=== PATIENT | male | born 1975 | race Caucasian/White ===

== ENCOUNTER 2019-03-12 14:13 | Inpatient (IN) | payer SELFPAY ==
[2019-03-12] MEDS ORDERED: LABETALOL INJ 5 MG/ML VIAL IV ONE (14:31)
--- NOTE | 2019-03-12 14:53 | ED.PDOC ---
History of Present Illness - General Chief Complaint: Blood Pressure Problem Stated Complaint: Hypertension and JACOBO Time Seen by Provider: 03/12/19 14:48 Source: patient, family - History of Present Illness Initial Comments: 43 yo M with hx of DM, HTN who presents for "not feeling well" since yesterday afternoon, continued to worsen and therefore presented to the ED. Pt was in recent past noncompliant with medication, has started to become compliant, and was doing well. Yesterday however noticed his BP was high, he tried to take a second dose of lisinopril however it did not improve the sx. Associated frontal, nonradiating, constant, slowly worsening JACOBO. Reports associated SOB even while talking, worse with exertion, and bilateral calf pain however no swelling. Chronic cough from the lisinopril. Mentions that two months ago he had what appeared to family as a generalized shaking seizure, EMS was called, by the time EMS arrived he was back to normal and therefore declined transport, he has not sought medical treatment since then, no episodes since then, reports he felt "cold all over" before it happened and he is feeling that way currently. Denies fever, chills, body aches, congestion, ear pain, sore throat, CP, abd pain, n/v/d, edema, recent long trips, recent surgery, hormone use, weakness, numbness, change in vision. Denies hx of OH, CAD, CVA. Allergies/Adverse Reactions: Allergies NO KNOWN ALLERGY Allergy (Verified 03/12/19 14:29) Home Medications: Ambulatory Orders Glipizide 10 mg PO DAILY 03/12/19 Lisinopril 20 mg PO DAILY 03/12/19 RX: Gabapentin 300 mg PO BID 03/12/19 Review of Systems - Review of Systems Constitutional: States: other - felling cold all over. Denies: chills, fever EENTM: Denies: eye pain, blurred vision, double vision, ear pain, nose pain, nose congestion, throat pain, throat swelling, mouth pain Respiratory: States: cough - chronic, short of breath. Denies: stridor, wheezing Cardiology: Denies: chest pain, edema, palpitations, syncope Gastrointestinal/Abdominal: Denies: abdominal pain, constipation, diarrhea, nausea, vomiting Genitourinary: Denies: frequency, hematuria Musculoskeletal: Denies: back pain, neck pain Skin: Denies: change in color, lesions, rash Neurological: States: headache, seizure - ?. Denies: numbness, paresthesia, tingling, tremors, weakness Endocrine: Denies: excessive sweating, flushing Hematologic/Lymphatic: Denies: easy bleeding, easy bruising Past Medical History (General) - Patient Medical History Hx Stroke: No Hx of COPD: No Hx Cardiac Disorders: No Hx Congestive Heart Failure: No Hx Hypertension: Yes Hx Diabetes: Yes Hx Gastroesophageal Reflux: Yes Hx Cancer: No Surgical History: other - Vaccination History Hx Tetanus, Diphtheria Vaccination: No Hx Influenza Vaccination: No - Social History Hx Tobacco Use: No Hx Alcohol Use: Yes - Former Hx Substance Use: No Hx Substance Use Treatment: No Hx Depression: No - Female History Patient is a Female of Child Bearing Age (10 -59 yrs old): No Patient : No Family Medical History - Family History Mother Living Status: Still Living Hx Family Congestive Heart Failure: Yes Physical Exam - Physical Exam General Appearance: Alert, No apparent distress, Well Developed, Well Nourished Eyes, Ears, Nose, Throat Exam: PERRL/EOMI, other - No photophobia, scleral icterus Neck: non-tender, full range of motion, supple, normal inspection Respiratory: chest non-tender, lungs clear, normal breath sounds, no respiratory distress, no accessory muscle use, other - No acc muscle use, rales, rhonci, wheezing, stridor Cardiovascular/Chest: normal peripheral pulses, regular rate, rhythm, no edema, no gallop, no JVD, no murmur Peripheral Pulses: radial,right: 2+, radial,left: 2+ Gastrointestinal/Abdominal: normal bowel sounds, non tender, soft, no organomegaly, no pulsatile mass, other - No distention, guarding, rebound Extremity: normal range of motion, non-tender, normal inspection, no pedal edema, no calf tenderness Neurologic: installations inspector II-XII nml as tested, no motor/sensory deficits, alert, normal mood/affect, oriented x 3, other - Normal gait, normal cerebellar testing Skin Exam: normal color, warm/dry, other - No rash Progress - Progress Progress: Differential Diagnosis: Dehydration, KOURTNEY, electrolyte disorder, volume overload, NSTEMI, STEMI, arrhythmia, PE, pneumonia, pleural effusion, intracranial process, hyperglycemia, DKA, hypertensive urgency, hypertensive emergency, amongst other considerations 03/12/19 15:06 HEART score of 3. 03/12/19 15:23 BP improved to 160's systolic with IV labetalol, pt reports symptomatic improvement, will give toradol 30mg IV. 03/12/19 15:40 Two SIRS criteria; HR 93, WBC 12.4. No source of infection, no symptoms supporting infection. Will not activate code sepsis. Rechecked pt, doing well. Sx improved. Discussed results and need for admission, pt agrees with plan, all questions and concerns addressed. 03/12/19 15:[address] Pardo, hospitalist, accepts for admission for DKA. Will start pt on insulin drip after 2L bolus. Pt is well appearing. Eunice Birmingham MD Emergency Medicine Physician Billing Number [id number] - Results/Orders Results/Orders: Laboratory Results - last 24 hr 03/12/19 03/12/19 03/12/19 14:57 14:57 14:57 WBC 12.4 H RBC 5.43 Hgb 15.6 Hct 45.9 MCV 84.5 MCH 28.7 MCHC 33.9 RDW 13.0 Plt Count 191 MPV 9.1 Absolute Neuts (auto) 8.70 H Absolute Lymphs (auto) 2.50 Absolute Monos (auto) 1.00 H Absolute Eos (auto) 0.10 Absolute Basos (auto) 0.10 Neutrophils % 70.0 Lymphocytes % 19.9 L Monocytes % 8.3 Eosinophils % 1.0 Basophils % 0.8 D-Dimer, Quantitative pCO2 pO2 HCO3 ABG pH ABG O2 Saturation ABG Base Excess ABG Deoxyhemoglobin Oxyhemoglobin % Carboxyhemoglobin % Methemoglobin % Sat Calc Total Hemoglobin Sodium 135 Potassium 4.0 Chloride 99 L Carbon Dioxide 18 L Anion Gap 22.0 H BUN 24 H Creatinine 0.97 BUN/Creatinine Ratio 24.7 H Random Glucose 314 H Serum Osmolality 286.1 Calcium 9.1 Total Bilirubin 0.4 AST 23 ALT 23 Alkaline Phosphatase 64 Troponin I < 0.02 B-Natriuretic Peptide Serum Total Protein 7.7 Albumin 4.0 Globulin 3.7 H Albumin/Globulin Ratio 1.1 03/12/19 03/12/19 03/12/19 14:57 14:57 15:52 WBC RBC Hgb Hct MCV MCH MCHC RDW Plt Count MPV Absolute Neuts (auto) Absolute Lymphs (auto) Absolute Monos (auto) Absolute Eos (auto) Absolute Basos (auto) Neutrophils % Lymphocytes % Monocytes % Eosinophils % Basophils % D-Dimer, Quantitative 0.24 pCO2 37 pO2 84 HCO3 21.6 ABG pH 7.390 ABG O2 Saturation 97.0 ABG Base Excess -2.4 ABG Deoxyhemoglobin 3.0 Oxyhemoglobin % 95.2 Carboxyhemoglobin % 0.2 L Methemoglobin % Sat 1.6 H Calc Total Hemoglobin 14.1 Sodium Potassium Chloride Carbon Dioxide Anion Gap BUN Creatinine BUN/Creatinine Ratio Random Glucose Serum Osmolality Calcium Total Bilirubin AST ALT Alkaline Phosphatase Troponin I B-Natriuretic Peptide 7.5 Serum Total Protein Albumin Globulin Albumin/Globulin Ratio CT HEAD: EXAM DESCRIPTION: Head CLINICAL HISTORY: headache COMPARISON: None available TECHNIQUE: Contiguous axial images through the head were obtained without intravenous contrast administration. Sagittal and coronal reconstructions were reviewed. This exam was performed according to our departmental dose- optimization program, which includes automated exposure control, adjustment of the mA and/or kV according to patient size and/or use of iterative reconstr uction technique. FINDINGS: No evidence of acute major vascular territorial infarct or intraparenchymal hemorrhage. No intra-axial or extra-axial fluid collections are identified. The ventricles and cisterns appear normal in caliber. The sella and suprasellar regions appear normal. The structures of the posterior fossa are intact. The globes are intact bilaterally. The visualized paranasal sinuses and mastoid air cells are well-aerated. Review of the bones demonstrates no gross instability. IMPRESSION: No CT evidence of acute intracranial process. Electronically signed by: Jimenez Guadalupe MD 03/12/2019 3:22 PM CDT CXR: EXAM DESCRIPTION: Chest,2 Views CLINICAL HISTORY: 43 years Male, elevated BP, cardiac workup COMPARISON: None available. TECHNIQUE: PA and lateral radiographs of the chest were obtained. FINDINGS: Trachea is midline.The cardiomediastinal silhouette is normal in size. The pulmonary vasculature is within normal limits.The lungs are clear with no acute consolidation.No evidence of pleural effusions.No evidence of pneumothorax. IMPRESSION: No acute cardiopulmonary process. Electronically signed by: Jimenez Guadalupe MD 03/12/2019 3:16 PM CDT - EKG/XRAY/CT EKG: Sinus, RBBB Comments: Rate 97, LAE, T wave inversion III. [place] ST. No STEMI. Departure - Departure Clinical Impression: DKA (diabetic ketoacidoses) Disposition: Admit Patient Condition: Fair Home Medications: Ambulatory Orders Glipizide 10 mg PO DAILY 03/12/19 Lisinopril 20 mg PO DAILY 03/12/19 RX: Gabapentin 300 mg PO BID 03/12/19
--- NOTE | 2019-03-12 15:18 | RAD ---
EXAM DESCRIPTION: Chest,2 Views CLINICAL HISTORY: 43 years Male, elevated BP, cardiac workup COMPARISON: None available. TECHNIQUE: PA and lateral radiographs of the chest were obtained. FINDINGS: Trachea is midline.The cardiomediastinal silhouette is normal in size. The pulmonary vasculature is within normal limits.The lungs are clear with no acute consolidation.No evidence of pleural effusions.No evidence of pneumothorax. IMPRESSION: No acute cardiopulmonary process. Electronically signed by: Jimenez Guadalupe MD 03/12/2019 3:16 PM CDT
[2019-03-12] MEDS ORDERED: KETOROLAC TROMETHAMINE INJ 30 MG/ML VIAL IV ONE (15:23)
--- NOTE | 2019-03-12 15:23 | CT ---
EXAM DESCRIPTION: Head CLINICAL HISTORY: headache COMPARISON: None available TECHNIQUE: Contiguous axial images through the head were obtained without intravenous contrast administration. Sagittal and coronal reconstructions were reviewed. This exam was performed according to our departmental dose-optimization program, which includes automated exposure control, adjustment of the mA and/or kV according to patient size and/or use of iterative reconstruction technique. FINDINGS: No evidence of acute major vascular territorial infarct or intraparenchymal hemorrhage. No intra-axial or extra-axial fluid collections are identified. The ventricles and cisterns appear normal in caliber. The sella and suprasellar regions appear normal. The structures of the posterior fossa are intact. The globes are intact bilaterally. The visualized paranasal sinuses and mastoid air cells are well-aerated. Review of the bones demonstrates no gross instability. IMPRESSION: No CT evidence of acute intracranial process. Electronically signed by: Jimenez Guadalupe MD 03/12/2019 3:22 PM CDT
[2019-03-12] MEDS ORDERED: SODIUM CHLORIDE 0.9% 1000ML 1,000 ML IVS ONE ×2 (15:39→16:02)
[2019-03-12] MEDS ORDERED: INSULIN, REG.(HUMAN) 250 UNITS in SODIUM CHL 0.9% 250ML (AVIVA) 247.5 ML IVPB SCH ×4 (16:00→17:00)
--- NOTE | 2019-03-12 16:05 | HP ---
CHIEF COMPLAINT: Elevated blood pressure and headache. HISTORY OF PRESENT ILLNESS: The patient began having an increasing headache over the last several days, which usually happens when his blood pressure is elevated. He states he noted a couple of readings into the 170s/100s. He said he had a little bit of calf pain and shortness of breath over the last couple of days as well. He has a history of diabetes, currently taking Glipizide, Gabapentin and Lisinopril. He states he has been noncompliant in the past many months, but over the last 3 to 4 weeks he has begun to cut his sugar intake down, while continuing with his diabetic medications. The one change he endorses is trying to take less and less of his Gabapentin. REVIEW OF SYSTEMS: The patient denies any fever or chills, no congestion or upper respiratory symptoms, no abdominal pain, slight constipation, no nausea or vomiting, no edema. PAST MEDICAL HISTORY: 1. Diabetes. 2. Hypertension. 3. Diabetic neuropathy. PAST SURGICAL HISTORY: None. CURRENT MEDICATIONS: 1. Glipizide 10 mg p.o. daily. 2. Lisinopril 20 mg p.o. daily. 3. Gabapentin 300 mg p.o. b.i.d. ALLERGIES: NO KNOWN DRUG ALLERGIES. FAMILY HISTORY: Mother with congestive heart failure. OBJECTIVE: VITAL SIGNS: 98.4 degrees Fahrenheit, pulse 82, blood pressure 143/88, respiratory rate 16, O2 saturation 96% on room air. PHYSICAL EXAMINATION: GENERAL: The patient is alert, non-agitated, not anxious and acting appropriately. RESPIRATORY: Lungs are clear to auscultation, no wheezes. CARDIAC: Normal rate and rhythm, no murmurs, normal pedal pulses and radial pulses, no edema. GASTROINTESTINAL: No abdominal tenderness and no abdominal masses appreciated. NEUROLOGIC: Alert and oriented times three, cranial nerve I-XII grossly intact. MUSCULOSKELETAL: Strength 5/5 in all extremities, sensation normal throughout. LABORATORY: Hematology: White blood cells 12.4, hemoglobin and hematocrit is 15.6 and 45.9, platelet count 191. D-dimer 0.24. Sodium 135, potassium 4.0, chloride 99, carbon dioxide 18, anion gap 22.0, BUN/creatinine is 24/0.97, serum osmolality 286. Random glucose 314, calcium 9.1, total bilirubin 0.4. AST/ALT is 23/23. Troponin is negative. BNP negative at 7.5. Urinalysis within normal limits except for glucose of 500 and ketones of 15. ABG shows pH of 7.39. IMAGING: Head CT: No acute intracranial process. Chest x-ray: No acute cardiopulmonary process is noted. ASSESSMENT: 1. Acute hyperglycemia. 2. Acute on chronic hypertensive urgency. 3. Chronic type 2 diabetes. 4. Diabetic neuropathy. PLAN: The patient meets criteria for acute hyperglycemia at this time, serum osmolality was normal so no HHS, and he was not acidotic therefore not in diabetic ketoacidosis. He received 2 liters of normal saline in the E. R., will initiate insulin drip at 0.1 units per kg per hour. Once blood glucose is below 250, we can initiate subcutaneous insulin administration. He will have finger glucose checks every hour, with BMP every 4 hours. Potassium was normal prior to saline and insulin administration, therefore can add 20 mg of potassium to normal saline at 140 mL per hour after boluses are finished. I am lab adding magnesium and phosphorus levels to check baseline. We will follow anion gap throughout the night. NPO currently, I assume we will be able to feed him breakfast and he will transition to low dose subcutaneous insulin by tomorrow. I presume he will be here for at least 2 midnights, and we can initiate his home diabetic regimen prior to discharge. The patient endorses he would like to see me as a primary care physician on an outpatient basis for hospital followup and intermediate care. He is currently full code, he and his agree to the plan. Discussed with nurses on the floor. #[id number] MTDD
[2019-03-12] MEDS ORDERED: ACETAMINOPHEN 325 MG TAB PO PRN (16:47)
[2019-03-12] MEDS ORDERED: SODIUM CHLORIDE 0.9% (FLUSH) 10 ML SYG IV PRN (16:47)
[2019-03-12] MEDS ORDERED: IV SET AND CAP CHANGE INJ INJ SCH (17:00)
[2019-03-12] MEDS ORDERED: INSULIN LISPRO 100 UNITS/ML PEN SUBCU ONE (17:33)
[2019-03-12] MEDS: INSULIN LISPRO 100 UNITS/ML PEN SUBCU SCH ×8 (17:43→23:26)
[2019-03-12] MEDS: KCL 20 MEQ/NS 1,000 ML IVS PRN (19:17)
[2019-03-12] MEDS: LISINOPRIL 10 MG TAB PO SCH (20:18)
[2019-03-13] MEDS: INSULIN LISPRO 100 UNITS/ML PEN SUBCU SCH ×2 (07:09→11:49)
[2019-03-13] MEDS: LISINOPRIL 10 MG TAB PO SCH (08:53)
[2019-03-13] MEDS: KCL 20 MEQ/NS 1,000 ML IVS PRN (08:59)
[2019-03-13] MEDS ORDERED: LISINOPRIL 10 MG TAB PO SCH (09:00)
[2019-03-13] MEDS: metFORMIN XR 500 MG TAB.ER.24 PO SCH ×2 (12:11→12:38)
[2019-03-13 12:41] VITALS: BP 140/72; TEMP 98.7; O2SAT 98
[2019-03-13] MEDS ORDERED: INFLUENZA VIRUS VACC (ADULT) 0.5 ML SYG IM ONE (12:42)
[2019-03-13] MEDS ORDERED: SODIUM CHLORIDE 0.9% (FLUSH) 10 ML SYG IV SCH (21:00)
--- NOTE | 2019-03-14 14:04 | DS ---
SUPERVISING PHYSICIAN: Chase Pardo MD DISCHARGE DIAGNOSES: 1. Acute hyperglycemia. 2. Acute on chronic hypertensive urgency. 3. Chronic type 2 diabetes. 4. Diabetic neuropathy. HISTORY OF PRESENT ILLNESS: This is a 43 year-old male who had been having an increasing headache over the last several days. This usually happens when his blood pressure is elevated. He had several readings in the 170s/100s. There was also some chest pain as well as some shortness of breath. He has a history of diabetes, currently taking Glipizide, Gabapentin and Lisinopril, although he has been out of his medications for some time. He has also been noncompliant. In the past, he was living in [place] but has recently moved to [place]. He did say that he had been cutting his sugar intake down because he has been out of his medications for a few days. The patient was admitted to the hospital for treatment of hypoglycemia as well as his hypertensive urgency. HOSPITAL COURSE: The patient's medications were restarted. His blood pressures came down to the 120s/80s to the 150s over 70s. He was placed on sliding scale insulin with a.c. and h.s. blood sugar checks. His glucose readings were around 136 to 262 after starting the Humalog insulin. He has had a difficult time with metformin in the past and does not want to take it due to GI symptoms. He has also been fairly noncompliant with the glipizide because it makes him feel poorly as well. His vital signs have been stable, his blood work has been stable and he will be discharged home in stable condition with close followup with Dr. Pardo on Friday. LABORATORY: WBCs were elevated at 12.4. The remainder of his hemoglobin and hematocrit was unremarkable. D-dimer was negative. His arterial blood gases was also urinalysis. Blood sugars ran between a high of 314 in the Emergency Room and was 136 to 262 after admission to the Floor. His electrolytes showed initially a low potassium as low as 3.4 and is now 3.9. His other electrolytes remained within normal limits. Hemoglobin A1C is 10.2. BUN 21, creatinine 0.75. Urinalysis is unremarkable. Serum ketones were negative. Head CT showed no CT evidence of an acute intracranial process. Chest x-ray showed no acute cardiopulmonary processes. DISCHARGE PLAN: The patient will be discharged home in stable condition. He is to continue a diabetic diet and increase his activity as tolerated. He does have a followup appointment with Dr. Pardo on 03/15/19 at 11:00 A.M. He does not want to take metformin at this time due to GI distress. He also says that glipizide makes him feel poorly and has asked once a week injection. I refilled his Lisinopril and his Gabapentin. Since he has close followup, I will go ahead and take his glipizide that he has at home and his medications can be reviewed at his followup appointments. He will have [employer] insurance as of April 20. He is to return to the hospital or followup with Dr. Pardo for any problems or complications. DISCHARGE MEDICATIONS: 1. Glipizide. 2. Lisinopril. 3. Gabapentin. #[id number] MTDD
== END 2019-03-13 13:33 | disposition home or self-care (01) | DRG 639 ==
LOC: ER 14:13 → OBSVTOIN 16:01 → MS 16:01
PROVIDERS: ADMIT Family Medicine; ATTEND Nurse Practitioner Acute Care
DX: E11.65 Type 2 diabetes mellitus with hyperglycemia (principal); I16.0 Hypertensive urgency; I10 Essential (primary) hypertension; E11.40 Type 2 diabetes mellitus with diabetic neuropathy, unspecified; T38.3X6A Underdosing of insulin and oral hypoglycemic [antidiabetic] drugs, initial encounter; T42.6X6A Underdosing of other antiepileptic and sedative-hypnotic drugs, initial encounter; T46.4X6A Underdosing of angiotensin-converting-enzyme inhibitors, initial encounter; Z91.128 Patient's intentional underdosing of medication regimen for other reason; Y92.009 Unspecified place in unspecified non-institutional (private) residence as the place of occurrence of the external cause; K21.9 Gastro-esophageal reflux disease without esophagitis; E87.6 Hypokalemia; Z79.84 Long term (current) use of oral hypoglycemic drugs; Z79.899 Other long term (current) drug therapy

== ENCOUNTER 2019-07-27 20:08 | Emergency (ER) | payer BC ==
--- NOTE | 2019-07-27 20:36 | RAD ---
EXAM:Chest,2 Views CLINICAL INDICATION: Shortness of breath COMPARISON: 03/12/2019 FINDINGS:Two views of the chest were obtained. The heart size is normal. The pulmonary vascularity is unremarkable. The lungs are clear. There is no consolidation, infiltrate, pleural effusion, or pneumothorax. IMPRESSION: No evidence of active pulmonary disease. Electronically signed by: Rah Bergeron MD 07/27/2019 8:35 PM CDT
--- NOTE | 2019-07-27 20:50 | ED.PDOC ---
History of Present Illness - General Chief Complaint: Respiratory Problem Stated Complaint: Dry cough, short of breath Time Seen by Provider: 07/27/19 20:37 Source: patient Exam Limitations: no limitations - History of Present Illness Comments: STARTED 3AM LAST NOC ([id number] HRS AGO) = SOB, CHEST CONGESTION, DRY COUGH. SAW DR YESTERDAY AND FELT FINE THEN. NO MED CHANGES SINCE DR VISIT. Timing/Duration: yesterday Cough Quality/Degree: dry cough Possible Cause: no prior episodes Improving Factors: nothing Worsening Factors: nothing Associated Symptoms: cough Respiratory Risk Factors: no cause identified Allergies/Adverse Reactions: Allergies NO KNOWN ALLERGY Allergy (Verified 03/12/19 18:07) Home Medications: Ambulatory Orders Lisinopril 20 mg PO DAILY #30 tab 03/13/19 Benzonatate Perles [Tessalon Perles] 100 mg PO TID PRN #30 cap 07/27/19 Chlorthalidone 50 mg PO 07/27/19 Gabapentin 600 mg PO TID 07/27/19 Metformin HCl [Fortamet] 1,000 mg PO BID 07/27/19 Metoprolol Succinate [Metoprolol Succinate ER] 25 mg PO DAILY 07/27/19 Semaglutide [Ozempic] 1 dose 07/27/19 Review of Systems - Review of Systems Constitutional: Denies: chills, fever EENTM: Denies: ear pain, nose congestion Respiratory: States: cough, short of breath Cardiology: Denies: chest pain, palpitations Gastrointestinal/Abdominal: Denies: abdominal pain, nausea Genitourinary: States: no symptoms reported Musculoskeletal: States: no symptoms reported Skin: States: no symptoms reported Neurological: States: no symptoms reported. Denies: headache Endocrine: States: no symptoms reported Hematologic/Lymphatic: States: no symptoms reported All other Systems: Reviewed and Negative Past Medical History (General) - Patient Medical History Hx Seizures: No Hx Stroke: No Hx of COPD: No Hx Cardiac Disorders: No Hx Congestive Heart Failure: No Hx Pacemaker: No Hx Hypertension: Yes Hx Diabetes: Yes Hx Gastroesophageal Reflux: Yes Hx Cancer: No Hx MRSA: No Surgical History: no surgical history - Vaccination History Hx Tetanus, Diphtheria Vaccination: No Hx Influenza Vaccination: No - Social History Hx Tobacco Use: No Hx Alcohol Use: Yes - Former Hx Substance Use: No Hx Substance Use Treatment: No Hx Depression: No Hx Physical Abuse: No Hx Emotional Abuse: No - Female History Patient : No - Triage Comment ED Triage Comment: Saw PCP yesterday for same symptoms and had mediation changes. Family Medical History - Family History Mother Living Status: Still Living Hx Family Congestive Heart Failure: Yes Physical Exam - Physical Exam General Appearance: Alert, No apparent distress, Obese Eye Exam: bilateral normal ENT Exam: normal ENT inspection, hearing grossly normal, TMs normal, pharynx normal Neck: non-tender, full range of motion, supple Respiratory: lungs clear, normal breath sounds, no respiratory distress Cardiovascular/Chest: normal peripheral pulses, no JVD, no murmur Gastrointestinal/Abdominal: non tender, soft Extremity: normal range of motion, normal inspection, no pedal edema Neurologic: alert, normal mood/affect Skin Exam: normal color, warm/dry Lymphatic: no adenopathy Progress - Results/Orders Results/Orders: 23:30 PT STATES FEELING BETTER - SOB GONE. COUGH BETTER WITH TESSALON. VIRAL URI - TINCTURE OF TIME. TESSALON FOR COUGH RX'D. HTN IMPROVED WITH CLONIDINE. FROM 160/104 TO 147/98. PT STATES IT IS CONTROLLED WHEN NOT ILL AND HE WILL KEEP AN EYE ON IT. EKG - RBBB W/ PROLONGED QT INTERVAL. CBC - ELEV WBC AND NEUTS. CMP - ELEV BUN AND GLUCOSE. CXR, BNP, CARD ENZ NEG. Departure - Departure Clinical Impression: Viral URI with cough, Neutrophilic leukocytosis, Elevated BUN Dyspnea Qualifiers: Dyspnea type: shortness of breath Qualified Code(s): R06.02 - Shortness of breath; R06.00 - Dyspnea, unspecified; R06.01 - Orthopnea Diabetes mellitus Qualifiers: Diabetes mellitus type: type 2 Diabetes mellitus termite inspector insulin use: without assisted use Diabetes mellitus complication status: without complication Qualified Code(s): E11.9 - Type 2 diabetes mellitus without complications Hypertension Qualifiers: Hypertension type: unspecified Qualified Code(s): I10 - Essential (primary) hypertension Disposition: Discharge to Home or Self Care Condition: Good Departure Forms: ED Discharge - Pt. Copy, Patient Portal Self Enrollment Instructions: Viral Upper Respiratory Infection, Adult (DC) Diet: resume usual diet Activity: increase activity as tolerated Referrals: Chase Pardo MD [Primary Care Provider] - 1-2 Weeks Prescriptions: Benzonatate Perles [Tessalon Perles] 100 mg PO TID PRN #30 cap PRN Reason: Cough Home Medications: Ambulatory Orders Lisinopril 20 mg PO DAILY #30 tab 03/13/19 Benzonatate Perles [Tessalon Perles] 100 mg PO TID PRN #30 cap 07/27/19 Chlorthalidone 50 mg PO 07/27/19 Gabapentin 600 mg PO TID 07/27/19 Metformin HCl [Fortamet] 1,000 mg PO BID 07/27/19 Metoprolol Succinate [Metoprolol Succinate ER] 25 mg PO DAILY 07/27/19 Semaglutide [Ozempic] 1 dose 07/27/19 Additional Instructions: Please follow up with your regular doctor regarding your high blood pressure and diabetes.
[2019-07-27] MEDS ORDERED: BENZONATATE PERLES 100 MG CAP PO ONE (20:52)
[2019-07-27] MEDS ORDERED: cloNIDine HCL 0.1 MG TAB PO ONE (20:54)
[2019-07-27 23:31] VITALS: O2SAT 95
[2019-07-28 00:08] VITALS: BP 133/77; TEMP 98.6
== END 2019-07-28 00:06 | disposition home or self-care (01) ==
LOC: ER 20:08
DX: J06.9 Acute upper respiratory infection, unspecified (principal); D72.828 Other elevated white blood cell count; R79.89 Other specified abnormal findings of blood chemistry; E11.9 Type 2 diabetes mellitus without complications; I10 Essential (primary) hypertension; I45.10 Unspecified right bundle-branch block; I45.81 Long QT syndrome; K21.9 Gastro-esophageal reflux disease without esophagitis; Z79.84 Long term (current) use of oral hypoglycemic drugs; Z79.899 Other long term (current) drug therapy

== ENCOUNTER 2020-03-08 19:52 | Emergency (ER) | payer SELFPAY ==
--- NOTE | 2020-03-08 19:57 | ED.PDOC ---
History of Present Illness - General Time Seen by Provider: 03/08/20 19:54 Source: patient, RN notes reviewed, Vital Signs reviewed, old records Exam Limitations: no limitations - History of Present Illness Initial Comments: 44 yo male with hx of DKA comes in with the c/c of elevated blood sugar. Checked it at home and it was reading over 400. states he was out of town and has not checked his sugar for several days as he has been out of town. Denies any changes or missed medication, no n/v/d. no dysuria, cough, shortness of breath or fever. Has bilateral throbbing headache. has leg cramps bilaterally. Otherwise feels well. Patient states hes on a total of 80 mg of lisinopril a day. Also should be on ozempic, but couldn't afford it these past two months. Allergies/Adverse Reactions: Allergies NO KNOWN ALLERGY Allergy (Verified 03/12/19 18:07) Home Medications: Ambulatory Orders Lisinopril 20 mg PO DAILY #30 tab 03/13/19 Metformin HCl [Fortamet] 1,000 mg PO BID 07/27/19 Hydrochlorothiazide 12.5 mg PO DAILY #14 cap 03/08/20 SITagliptin [Januvia] 50 mg PO DAILY #14 tab 03/08/20 Review of Systems - Review of Systems Constitutional: Denies: chills, fever, malaise EENTM: Denies: blurred vision, double vision Respiratory: Denies: cough, short of breath Cardiology: Denies: chest pain, palpitations Gastrointestinal/Abdominal: Denies: abdominal pain, diarrhea, nausea, vomiting Genitourinary: Denies: dysuria, frequency, hematuria Musculoskeletal: Denies: joint pain, joint swelling Skin: Denies: change in hair/nails, dryness Neurological: States: headache. Denies: numbness, paresthesia, pre-existing deficit, tingling, tremors, weakness Endocrine: Denies: increased urine, unexplained weight gain, unexplained weight loss Hematologic/Lymphatic: Denies: blood clots, easy bleeding, easy bruising Past Medical History (General) - Patient Medical History Hx Seizures: No Hx Stroke: No Hx of COPD: No Hx Cardiac Disorders: No Hx Congestive Heart Failure: No Hx Pacemaker: No Hx Hypertension: Yes Hx Diabetes: Yes Hx Gastroesophageal Reflux: Yes Hx Cancer: No Hx MRSA: No - Vaccination History Hx Tetanus, Diphtheria Vaccination: No Hx Influenza Vaccination: No - Social History Hx Tobacco Use: No Hx Alcohol Use: Yes - Former Hx Substance Use: No Hx Substance Use Treatment: No Hx Depression: No Hx Physical Abuse: No Hx Emotional Abuse: No - Female History Patient : No Family Medical History - Family History Mother Living Status: Still Living Hx Family Congestive Heart Failure: Yes Physical Exam - Physical Exam General Appearance: Alert, Comfortable, No apparent distress, Well Developed, Well Groomed, Well Hydrated, Well Nourished Eye Exam: bilateral normal Ears, Nose, Throat: hearing grossly normal, normal ENT inspection, normal pharynx Neck: non-tender, full range of motion, supple, normal inspection, carotid bruit Respiratory: chest non-tender, lungs clear, normal breath sounds, no respiratory distress, no accessory muscle use Cardiovascular/Chest: normal peripheral pulses, regular rate, rhythm, no edema, no gallop, no JVD, no murmur Peripheral Pulses: radial,right: 2+, radial,left: 2+ Gastrointestinal/Abdominal: normal bowel sounds, non tender, soft, no organomegaly, no pulsatile mass Rectal Exam: deferred Back Exam: normal inspection, no CVA tenderness, no vertebral tenderness Extremity: normal range of motion, non-tender, normal inspection, no pedal edema, no calf tenderness, normal capillary refill Neurologic: environmental health inspector II-XII nml as tested, no motor/sensory deficits, alert, normal mood/affect, oriented x 3 Skin Exam: normal color, warm/dry Progress - Progress Progress: partial ddx: DKA, HHH, PE, hyperglycemia, uti. 03/08/20 22:21 patient at bedside laughing with , watching videos on phone. no evidence of stress. WIll give 10 units subQ insulin, 2 L NS bolus, and recheck sugar. headache resolved with IVF and 15 mg of IV toradol. Patient given 25 mg hydrochlorothiazide here. Repeat glucsoe 307. Will give 15 units of long acting insulin. Patient most likely needs to be on basal insulin. Laboratory Results WBC 9.1 K/mm3 (4.8-10.8) 03/08/20 20:19 RBC 5.35 M/mm3 (4.70-6.10) 03/08/20 20:19 Hgb 15.4 gm/dL (14.0-18.0) 03/08/20 20:19 Hct 45.4 % (42.0-52.0) 03/08/20 20:19 MCV 84.7 fl (80.0-94.0) 03/08/20 20:19 MCH 28.8 pg (27.0-31.0) 03/08/20 20:19 MCHC 34.1 g/dL (33.0-37.0) 03/08/20 20:19 RDW 13.0 % (11.5-14.5) 03/08/20 20:19 Plt Count 181 K/mm3 (130-400) 03/08/20 20:19 MPV 8.8 fl (7.40-10.4) 03/08/20 20:19 Absolute Neuts (auto) 6.40 K/uL (1.8-6.8) 03/08/20 20:19 Absolute Lymphs (auto) 1.80 K/uL (1.0-3.4) 03/08/20 20:19 Absolute Monos (auto) 0.70 K/uL (0.2-0.8) 03/08/20 20:19 Absolute Eos (auto) 0.10 K/uL (0.0-0.4) 03/08/20 20:19 Absolute Basos (auto) 0.10 K/uL (0.0-0.1) 03/08/20 20:19 Neutrophils % 70.3 % (42.0-78.0) 03/08/20 20:19 Lymphocytes % 19.6 % (20.0-50.0) L 03/08/20 20:19 Monocytes % 8.1 % (2.0-9.0) 03/08/20 20:19 Eosinophils % 1.2 % (1.0-5.0) 03/08/20 20: Basophils % 0.8 % (0.0-2.0) 03/08/20 20:19 D-Dimer, Quantitative < 131.0 ng/ml (131-400) L 03/08/20 20:19 Sodium 132 mmol/L (135-145) L 03/08/20 20:19 Potassium 4.5 mmol/L (3.6-5.0) 03/08/20 20:19 Chloride 94 mmol/L (101-111) L 03/08/20 20:19 Carbon Dioxide 26 mmol/L (21-31) 03/08/20 20:19 Anion Gap 16.5 (12-18) 03/08/20 20:19 BUN 19 mg/dL (7-18) H 03/08/20 20:19 Creatinine 1.04 mg/dL (0.6-1.3) 03/08/20 20:19 BUN/Creatinine Ratio 18.3 (10-20) 03/08/20 20:19 POC Glucose 307 mg/dL (70-105) H 03/08/20 22:32 Random Glucose 461 mg/dL (70-105) H* 03/08/20 20:19 Serum Osmolality 286.8 mOsm/L (275-295) 03/08/20 20:19 Calcium 9.2 mg/dL (8.4-10.2) 03/08/20 20:19 Phosphorus 3.5 mg/dL (2.5-4.6) 03/08/20 20:19 Magnesium 2.0 mg/dL (1.8-2.5) 03/08/20 20:19 Total Bilirubin 0.8 mg/dL (0.2-1.0) 03/08/20 20:19 AST 25 IU/L (10-42) 03/08/20 20:19 ALT 22 IU/L (10-60) 03/08/20 20:19 Alkaline Phosphatase 80 IU/L (42-121) 03/08/20 20:19 Serum Total Protein 7.6 gm/dL (6.4-8.2) 03/08/20 20:19 Albumin 4.0 g/dl (3.2-5.5) 03/08/20 20:19 Globulin 3.6 gm/dL (2.3-3.5) H 03/08/20 20:19 Albumin/Globulin Ratio 1.1 (1.1-1.9) 03/08/20 20:19 Urine Color Yellow (Yellow) 03/08/20 20:20 Urine Appearance Clear (Clear) 03/08/20 20:20 Urine pH 5.5 (4.5-7.8) 03/08/20 20:20 Ur Specific [place] 1.010 (1.005-1.030) 03/08/20 20:20 Urine Protein Negative mg/dL 03/08/20 20:20 Urine Glucose (UA) >=1000 mg/dL (Negative) H 03/08/20 20:20 Urine Ketones 15 mg/dL (NEGATIVE) H 03/08/20 20:20 Urine Blood Trace-lysed (Negative) H 03/08/20 20:20 Urine Nitrite Negative 03/08/20 20:20 Urine Bilirubin Negative (NEGATIVE) 03/08/20 20:20 Urine Urobilinogen 0.2 mg/dL (0.2-1.0) 03/08/20 20:20 Ur Leukocyte Esterase Negative (Negative) 03/08/20 20:20 Urine RBC 0-1 /hpf 03/08/20 20:20 Urine WBC 0 /hpf 03/08/20 20:20 Ur Epithelial Cells 1-3 /hpf 03/08/20 20:20 Urine Bacteria 0 03/08/20 20:20 Serum Ketones Negative 03/08/20 20:19 03/08/20 23:04 - Results/Orders Results/Orders: The data reviewed when caring for this patient included: nurse notes, prior records, etc. The history and assessments from nurses notes were reviewed and considered, and the patient's home medication list was also reviewed and considered. My assessment and the results of testing completed here in the ED were discussed with the patient/family. All questions were answered, and they express understanding of my assessment and the plan. They have been instructed to return if their symptoms worsen, and have been asked to follow up with their primary care physician to recheck today's presenting complaint. Strict return precautions given. I have reviewed medication, benefits, alternatives and side effects. Patient decided to proceed with medication. Mireya Li DO #[id number] Departure - Departure Clinical Impression: Hypertension Qualifiers: Hypertension type: essential hypertension Qualified Code(s): I10 - Essential (primary) hypertension Diabetes mellitus Qualifiers: Diabetes mellitus type: type 2 Diabetes mellitus intermediate card tender insulin use: without intermediate card tender use Diabetes mellitus complication status: with neurologic complica tions Diabetes mellitus complication detail: with polyneuropathy Qualified Code(s): E11.42 - Type 2 diabetes mellitus with diabetic polyneuropathy Diabetic neuropathy Qualifiers: Diabetes mellitus type: type 2 Diabetes mellitus complication detail: diabetic polyneuropathy Qualified Code(s): E11.42 - Type 2 diabetes mellitus with diabetic polyneuropathy Time of Disposition: 22:20 Disposition: Discharge to Home or Self Care Departure Forms: ED Discharge - Pt. Copy, Patient Portal Self Enrollment Instructions: DASH Diet, Hyperglycemia, Adult (DC), How to Prevent High Blood Sugar Emergencies in Diabetes Referrals: Chase Pardo MD [Primary Care Provider] - 1-2 Days Prescriptions: Hydrochlorothiazide 12.5 mg PO DAILY #14 cap SITagliptin [Januvia] 50 mg PO DAILY #14 tab Home Medications: Ambulatory Orders Lisinopril 20 mg PO DAILY #30 tab 03/13/19 Metformin HCl [Fortamet] 1,000 mg PO BID 07/27/19 Hydrochlorothiazide 12.5 mg PO DAILY #14 cap 03/08/20 SITagliptin [Januvia] 50 mg PO DAILY #14 tab 03/08/20
[2020-03-08] MEDS ORDERED: SODIUM CHLORIDE 0.9% 1000ML 1,000 ML IVS PRN ×2 (20:02→21:24)
[2020-03-08 20:11] VITALS: TEMP 98
[2020-03-08] MEDS ORDERED: INSULIN, REG.(HUMAN) 100 U/ML VIAL SUBCU ONE (20:38)
[2020-03-08] MEDS ORDERED: KETOROLAC TROMETHAMINE INJ 30 MG/ML VIAL IV ONE (20:49)
[2020-03-08] MEDS ORDERED: LISINOPRIL 10 MG TAB PO ONE (20:49)
[2020-03-08] MEDS ORDERED: hydroCHLOROthiazide 25 MG TAB PO SCH (21:00)
[2020-03-08 22:08] VITALS: O2SAT 97
[2020-03-08] MEDS ORDERED: INSULIN DETEMIR 100 UNITS/ML PEN SUBCU ONE (22:41)
[2020-03-08 22:57] VITALS: BP 122/78
== END 2020-03-08 22:57 | disposition home or self-care (01) ==
LOC: ER 19:52
DX: E11.42 Type 2 diabetes mellitus with diabetic polyneuropathy (principal); I10 Essential (primary) hypertension; K21.9 Gastro-esophageal reflux disease without esophagitis; R51.9 Headache, unspecified; Z79.84 Long term (current) use of oral hypoglycemic drugs; Z79.899 Other long term (current) drug therapy
CPT/HCPCS: 36415; 36416; 80053; 81001; 82009; 82948; 83735; 84100; 85025; 85379; J1815; J1885; J7030

== ENCOUNTER 2020-07-01 20:45 | Emergency (ER) | payer SELFPAY ==
--- NOTE | 2020-07-01 20:58 | ED.PDOC ---
History of Present Illness - General Chief Complaint: Fever Stated Complaint: fever, headache, no taste/smell Time Seen by Provider: 07/01/20 20:48 Source: patient, RN notes reviewed, Vital Signs reviewed - History of Present Illness Initial Comments: This is a 44-year-old male with history of hypertension, type 2 diabetes, presenting to the emergency department with 2 days of cough, body aches, low-gr karuna temperatures as well as loss of taste and smell. He suspects he has COVID- 19, but no known contacts. Symptoms started with mild body aches 2 days ago, had progressively worsened since then. He took a Tylenol 3 just prior to arrival with improvement of his body aches. He states he has chest pain with deep inspiration, no shortness of breath. No vomiting or diarrhea. He has not checked his blood sugar in over a month. Allergies/Adverse Reactions: Allergies NO KNOWN ALLERGY Allergy (Verified 03/12/19 18:07) Home Medications: Ambulatory Orders Lisinopril 20 mg PO DAILY #30 tab 03/13/19 Metformin HCl [Fortamet] 1,000 mg PO BID 07/27/19 Hydrochlorothiazide 12.5 mg PO DAILY #14 cap 03/08/20 SITagliptin [Januvia] 50 mg PO DAILY #14 tab 03/08/20 Albuterol Inhaler [Ventolin Hfa Inhaler] 1 - 2 puff INH Q4H PRN #1 inh 07/01/20 Ondansetron Odt [Zofran ODT] 4 - 8 mg PO Q6H PRN #15 tab 07/01/20 guaiFENesin W/CODEINE LIQ [Robitussin AC] 10 ml PO Q6H PRN 10 Days #180 ml 07/01/20 Review of Systems - Review of Systems Constitutional: States: chills, fever EENTM: States: nose congestion, throat pain. Denies: eye pain, ear pain, throat swelling Respiratory: States: cough, short of breath. Denies: wheezing Cardiology: States: chest pain. Denies: palpitations Gastrointestinal/Abdominal: Denies: abdominal pain, diarrhea, nausea, vomiting Genitourinary: Denies: dysuria, hematuria Musculoskeletal: States: back pain, muscle pain. Denies: joint pain, joint swelling, neck pain Skin: Denies: lesions, rash Neurological: States: headache. Denies: numbness, paresthesia, weakness Endocrine: States: no symptoms reported Hematologic/Lymphatic: States: no symptoms reported Past Medical History (General) - Patient Medical History Hx Seizures: No Hx Stroke: No Hx Dementia: No Hx Asthma: No Hx of COPD: No Hx Cardiac Disorders: No Hx Congestive Heart Failure: No Hx Pacemaker: No Hx Hypertension: Yes Hx Thyroid Disease: No Hx Diabetes: Yes Hx Gastroesophageal Reflux: Yes Hx Renal Disease: No Hx Cancer: No Hx of HIV: No Hx Hepatitis C: No Hx MRSA: No - Vaccination History Hx Tetanus, Diphtheria Vaccination: No Hx Influenza Vaccination: No Hx Pneumococcal Vaccination: No - Social History Hx Tobacco Use: No Hx Chewing Tobacco Use: No Hx Alcohol Use: Yes - Former Hx Substance Use: No Hx Substance Use Treatment: No Hx Depression: No Hx Physical Abuse: No Hx Emotional Abuse: No Hx Suspected Abuse: No - Female History Patient : No Family Medical History - Family History Mother Living Status: Still Living Hx Family Congestive Heart Failure: Yes Physical Exam - Physical Exam General Appearance: Alert, Comfortable Eye Exam: bilateral normal Ears, Nose, Throat: normal ENT inspection Neck: non-tender, full range of motion, supple Respiratory: chest non-tender, lungs clear, normal breath sounds, no respiratory distress, no accessory muscle use Cardiovascular/Chest: normal peripheral pulses, no edema, tachycardia Gastrointestinal/Abdominal: non tender, soft Back Exam: normal inspection, no vertebral tenderness Extremity: normal range of motion, non-tender, normal inspection Neurologic: no motor/sensory deficits, alert, normal mood/affect, oriented x 3 Skin Exam: normal color, warm/dry Progress - Progress Progress: 07/01/20 21:23 Rechecked. Blood sugar 250, patient states he ate approximately 1 hour ago. Discussed positive Covid test and need for quarantine at home. Discussed monoclonal antibody therapy with the patient. Discussed that the medication is unimproved and is being given under EUA. Discussed risk/benefits/alternatives. Patient agrees to proceed with treatment here in the emergency department. DDx: COVID-19, pneumonia, other viral URI MDM: Patient with known history of diabetes, obesity, with COVID-19 symptoms and positive COVID-19 swab. Symptoms began 2 days ago. Chest x-ray shows que stionable interstitial infiltrates, sats normal. He is slightly tachycardic, blood sugar slightly elevated to 50, but does not appear volume down and does not have any symptoms suggestive of DKA at this time. Monoclonal antibody infusion given in the emergency department. Will treat symptomatically. Discussed home quarantine for total of 14 days. Strict warnings given to return the emergency room for worsening shortness of breath, changes mental status, intractable vomiting, or new concerns. Rocky Ferro DO [facility] #[id number] - Results/Orders Results/Orders: Chest x-ray reviewed personally by me at 9:08 PM. There are patchy interstitial infiltrates, right greater than left, no focal consolidations, no pneumothorax EXAM: Chest,1 View CLINICAL INDICATION: 44-year-old male with fever and Covid like symptoms. TECHNIQUE: Single view, AP portable chest was obtained. COMPARISON: 07/27/2019. FINDINGS: Unremarkable cardiac and mediastinal silhouette. Heart size is normal. Low lung volumes grossly clear without focal opacity, pneumothorax or pleural effusions. The visualized bones are within normal limits. IMPRESSION: No acute cardiopulmonary abnormalities. Electronically signed by: Laquita Ramirez MD 07/01/2020 9:19 PM [employer]IFTING [employer] COVID-19 swab POSITIVE Departure - Departure Clinical Impression: COVID-19 Type II diabetes mellitus Qualifiers: Diabetes mellitus long-term insulin use: without long-term use Diabetes mellitus complication status: with hyperglycemia Qualified Code(s): E11.65 - Type 2 diabetes mellitus with hyperglycemia Disposition: Discharge to Home or Self Care Condition: Fair Departure Forms: ED Discharge - Pt. Copy, ED Discharge - Work Release, Patient Portal Self Enrollment Instructions: Coronavirus Disease 2019 (COVID-19) (DC), Bamlanivimab FDA Fact Sheet Diet: resume usual diet Activity: increase activity as tolerated Referrals: Chase Pardo MD [Primary Care Provider] - 1-5 Days Prescriptions: guaiFENesin W/CODEINE LIQ [Robitussin AC] 10 ml PO Q6H PRN 10 Days #180 ml PRN Reason: Cough Albuterol Inhaler [Ventolin Hfa Inhaler] 1 - 2 puff INH Q4H PRN #1 inh PRN Reason: Wheezing Ondansetron Odt [Zofran ODT] 4 - 8 mg PO Q6H PRN #15 tab PRN Reason: Nausea Home Medications: Ambulatory Orders Lisinopril 20 mg PO DAILY #30 tab 03/13/19 Metformin HCl [Fortamet] 1,000 mg PO BID 07/27/19 Hydrochlorothiazide 12.5 mg PO DAILY #14 cap 03/08/20 SITagliptin [Januvia] 50 mg PO DAILY #14 tab 03/08/20 Albuterol Inhaler [Ventolin Hfa Inhaler] 1 - 2 puff INH Q4H PRN #1 inh 07/01/20 Ondansetron Odt [Zofran ODT] 4 - 8 mg PO Q6H PRN #15 tab 07/01/20 guaiFENesin W/CODEINE LIQ [Robitussin AC] 10 ml PO Q6H PRN 10 Days #180 ml 07/01/20 Additional Instructions: Drink plenty of fluids. Check blood sugars regularly. Use pulse oximeter to check oxygen saturations regularly. Return to the emergency room for oxygen saturations less than 90%. Return the emergency room immediately for worsening shortness of breath, intractable vomiting, changes in mental status, or any other concerns.
--- NOTE | 2020-07-01 21:21 | RAD ---
EXAM: Chest,1 View CLINICAL INDICATION: 44-year-old male with fever and Covid like symptoms. TECHNIQUE: Single view, AP portable chest was obtained. COMPARISON: 07/27/2019. FINDINGS: Unremarkable cardiac and mediastinal silhouette. Heart size is normal. Low lung volumes grossly clear without focal opacity, pneumothorax or pleural effusions. The visualized bones are within normal limits. IMPRESSION: No acute cardiopulmonary abnormalities. Electronically signed by: Laquita Ramirez MD 07/01/2020 9:19 PM [facility]
[2020-07-01] MEDS ORDERED: SODIUM CHLORIDE 0.9% 250ML 250 ML ONE (21:27)
[2020-07-01] MEDS ORDERED: IBUPROFEN 200 MG TAB PO ONE (22:04)
[2020-07-01] MEDS ORDERED: IPRATROPIUM/ALBUTEROL 3 ML VIAL NEB ONE (23:16)
[2020-07-01 23:51] VITALS: BP 121/85; TEMP 98.1; O2SAT 96
== END 2020-07-01 23:52 | disposition home or self-care (01) ==
LOC: ER 20:45
DX: U07.1 COVID-19 (principal); E11.65 Type 2 diabetes mellitus with hyperglycemia; E66.9 Obesity, unspecified; K21.9 Gastro-esophageal reflux disease without esophagitis; I10 Essential (primary) hypertension; Z79.84 Long term (current) use of oral hypoglycemic drugs; Z79.899 Other long term (current) drug therapy
CPT/HCPCS: 71045; 82948; 87635; J7050